=== PATIENT | female | born 1970 | race Caucasian/White ===

== ENCOUNTER 2016-04-15 17:48 | Emergency (ER) | payer OTHER ==
[~2016-04-15] VITALS: Ht 162.6 cm; Wt 79.4 kg
[~2016-04-15 17:48] MED LIST: ASPIR 8181 MG PO; BUTALBITAL ACET1 CAP PO; CLONAZEPAM0.5 MG PO; DILAUDID2 M1 PO; FIORICET 325 MG1 TAB PO; FIORICET W/CODE1 CAP PO; FLEXERIL10 MG PO; NORTRIPTYLINE H10 M1; ONDANSETRON4 M1 PO; PROTONIX 40MG T40 MG PO; REGLAN10 M1 PO; REGLAN10 MG PO; TOPAMAX25 MG PO; TOPIRAMATE25 MG PO; TRAMADOL50 MG; TYLENOL #31 TAB PO; VERAPAMIL HCL120 M2 PO
--- NOTE | 2016-04-15 19:51 | ED HEADACHE COMPLAINT ---
History of Present Illness General Chief Complaint: Headache Stated Complaint: PT HAS A MARGAINE Source: patient, old records Exam Limitations: no limitations Vital Signs & Intake/Output Vital Signs & Intake/Output Vital Signs Date Time Temp Pulse Resp B/P Pulse O2 O2 Flow FiO2 Ox Delivery Rate 04/15 2020 82 16 130/70 99 Room Air 04/15 1756 98.0 88 18 135/81 98 Room Air ED Intake and Output 04/16 0000 04/15 1200 Intake Total Output Total Balance Patient 175 lb Weight Triage Note: PT TO ED FOR MIGRAINE, REPORTS IT BEGAN TH NIGHT "EVERYDAY BEEN STRESSFUL LATELY" +PHOTOSENSITIVITY, NAUSEA. Triage Nurses Notes Reviewed? yes Onset: Gradual Duration: constant Timing: recent history Quality/Severity: constant, pressure Severity Numbers: 8 Head Injury Location: temporal : No Patient currently breastfeeds: No HPI: Patient is a 45-year-old female with a past medical history of migraines who presents emergency with a 5 day history of waxing and waning right-sided temporal behind the eye headache and migraine symptoms which patient states that symptoms are similar to previous episodes. Patient has positive nausea however no emesis has occurred and patient is able to tolerate by mouth. Patient has taken [id number] Excedrin without relief of symptoms. Patient states that she just reestablish health insurance and is trying to obtain a primary care doctor. Patient denies any thunderclap worse headache of life denies any facial droop slurred speech extremity paresthesia or weakness and is acting at baseline per . Positive for photophobia. Denies any fever chills (JASON GÓMEZ,ONEAL) Allergies Coded Allergies: NSAIDS (Non-Steroidal Anti-Inflamma (TONGUE SWELLS, VERY SICK PER PT 04/15/16) Penicillins (HIVES, NAUSEA 04/15/16) ibuprofen (TONGUE SWELL 04/15/16) methylprednisolone (DYSPNEA, SKIN WAS CRAWLING PER PT 04/15/16) prednisone (DYSPNEA, SKIN WAS CRAWLING PER PT 04/15/16) sumatriptan (From IMITREX) (SOB 04/15/16) Reconcile Medications Hydromorphone HCl (Dilaudid) 2 MG TABLET 1 TAB PO BIDP PRN MIGRAINE Metoclopramide HCl (Reglan) 10 MG TABLET 1 TAB PO 4 TIMES/DAY PRN NAUSEA (KOLE QUILES,JANAK R.) Past History Travel History Traveled to [place] past 21 day No Medical History Any Pertinent Medical History? see below for history Neurological: migraine, CVA 07/2014 EENT: NONE Cardiovascular: NONE Respiratory: NONE Gastrointestinal: NONE Hepatic: NONE Renal: NONE Musculoskeletal: NONE Psychiatric: anxiety Endocrine: NONE Blood Disorders: NONE Cancer(s): NONE Surgical History Surgical History: APPY,HYSTERECTOMY, BLADDER. Psychosocial History What is your primary language [place] Tobacco Use: Current Daily Use Daily Tobacco Use Amount/Type: =< 4 Cigarettes daily ETOH Use: denies use Illicit Drug Use: denies illicit drug use Family History Hx Contributory? No (ONEAL MACK) Review of Systems Review of Systems Constitutional: Reports: no symptoms. Eyes: Reports: see HPI, photophobia. Ears, Nose, Throat, Mouth: Reports: no symptoms. Respiratory: Reports: no symptoms. Cardiovascular: Reports: no symptoms. Gastrointestinal/Abdominal: Reports: see HPI, nausea. Genitourinary: Reports: no symptoms. Musculoskeletal: Reports: no symptoms. Skin: Reports: no symptoms. Neurological/Psychological: Reports: see HPI, headache. Hematologic/Endocrine: Reports: no symptoms. Endocrine: Reports: no symptoms. Immunologic/Allergic: Reports: no symptoms. All Other Systems: Reviewed and Negative (ONEAL MACK) Physical Exam Physical Exam General Appearance: no apparent distress, alert Cranial Nerves: normal hearing, normal speech, PERRL Comments: HEENT: Normal EENT exam, extraocular motion intact, no nystagmus. Pupils equally round and reactive to light and accommodation. Nose is atraumatic. External auditory canal and Tympanic membranes clear. Pharynx normal. No swelling or edema. Neck: Supple, no lymphadenopathy, normal range of motion without pain or tenderness Back: Nontender, no CVA tenderness. Cardiovascular: Regular rate and rhythms no murmurs rubs or gallops, normal JVP Respiratory: Chest nontender. No respiratory distress.breath sounds clear to auscultation bilaterally Abdomen: Soft, nontender nondistended, no appreciable organomegaly. Normal bowel sounds. No ascites Extremity: No edema, no calf tenderness to palpation, normal and equal pulses. Neuro: Alert oriented x3, motor sensory normal, cranial nerves II through XII grossly intact. Skin: No appreciable rash on exposed skin, skin is warm and dry. Psych: Mood and affect is normal, memory and judgment is normal. Core Measures Severe Sepsis Present: No Septic Shock Present: No (ONEAL MACK) Progress Differential Diagnosis: carotid dissection, cav sinus thromb, cluster MERA, encephalitis, IC mass/tumor, intracranial Hem., meningitis, migraine MERA, musculoskeletal pain, post LP headache, sinusitis, SSS thrombosis, subarach. Hem., tension MERA, temporal arteritis, TMJ syndrome, viral cephalgia Plan of Care: Patient has unremarkable physical exam findings and at this time no concerns of CVA no focal deficits noted patient also felt comfortable to be discharged to go home after medications prescribed to patient previously by me improved patient's symptoms. Upon discharge patient looks well no apparent distress is able tolerate by mouth and I strongly advised patient to establish a primary care doctor and to return to emergency room with symptoms worsen and she will comply (ONEAL MACK) Departure Departure Disposition: HOME OR SELF CARE Condition: Stable Clinical Impression Primary Impression: Migraine Referrals: PATIENT HAS NO PRIMARY CARE DR (PCP/Family) Additional Instructions: As discussed please establish a primary care doctor next week for further evaluation treatment. Begin the prescription of Dilaudid for headaches and a prescription of Reglan for nausea. If symptoms worsen return to emergency room. Prescriptions are waiting a [facility] pharmacy. Departure Forms: Customer Survey General Discharge Information Prescriptions: Current Visit Scripts Hydromorphone HCl (Dilaudid) 1 TAB PO BIDP PRN MIGRAINE #8 TAB Metoclopramide HCl (Reglan) 1 TAB PO 4 TIMES/DAY PRN NAUSEA #20 TAB (ONEAL MACK) PA/[employer] Co-Sign Statement Statement: ED Attending supervision documentation- [] I saw and evaluated the patient. I have also reviewed all the pertinent lab results and diagnostic results. I agree with the findings and the plan of care as documented in the PA's/[employer]IE[employer]'s documentation. [x] I have reviewed the ED Record and agree with the PA's/[employer]IE[employer]'s documentation. [] Additions or exceptions (if any) to the PAs/[employer] CHIEF's note and plan are summarized below: [] (KOLE QUILES,JANAK Dumas)
[2016-04-15] MEDS ORDERED: REGLAN10 M1 PO (20:04)
[2016-04-15] MEDS ORDERED: DILAUDID2 M1 PO (20:04)
[2016-04-15 20:20] VITALS: BP 130/70
== END 2016-04-15 20:20 ==
LOC: ERH 17:48
DX: G43.909 Migraine, unspecified, not intractable, without status migrainosus (principal)